=== PATIENT | male | born 1995 | race Caucasian/White ===

== ENCOUNTER 2018-07-28 07:13 | Day surgery (SDC) | payer BC ==
--- NOTE | 2018-07-27 11:15 | Pre-op HX & Phy Repo 2 SIG ---
DATE OF ADMISSION: 07/28/2018 SCHEDULED FOR OUTPATIENT SURGERY: July 28, 2018. HISTORY OF PRESENT ILLNESS: The patient is a 22-year-old male in overall good health with a right groin bulge for the past year, which recently is associated with discomfort and increased bulging. Exam revealed bilateral inguinal hernia and he is scheduled to undergo bilateral herniorrhaphy. He has no gastrointestinal or genitourinary symptoms. PAST MEDICAL HISTORY: None. MEDICATIONS: None. ALLERGIES: None. OPERATIONS: Cardiac ablation at age 11 for supraventricular tachycardia. PHYSICAL EXAMINATION: GENERAL: The patient is 5 foot 8 inches, 155 pounds. He is thin. HEENT: Within normal limits. LUNGS: Clear. HEART: Regular rhythm. BREASTS: Without masses. ABDOMEN: Soft. There are bilateral small reducible inguinal hernia, the right more prominent than the left. Testes and scrotum were normal. There is no inguinal lymphadenopathy. RECTAL: Deferred. EXTREMITIES: Without edema. Pulses 4+ femoral to pedal bilaterally. NEUROLOGIC: Physiologic. IMPRESSION: Bilateral inguinal hernia, right greater than left. PLAN: I have had a full discussion with the patient regarding the nature of his condition, the nature of the surgery, indications, alternatives, options, and risks including bleeding, infection, recurrence, despite use of mesh, neuritis, or neuralgia, testicular or scrotal swelling or other abnormality, etc. All questions have been answered. He understands and agrees to proceed with bilateral open inguinal hernia repair with mesh. David Mullen M.D. DR: KEYSHA/SYBIL JOB#: [id number] CC:
[~2018-07-28] VITALS: Ht 172.7 cm; Wt 70.3 kg
[2018-07-28] VITALS (14 sets, daily range): BP systolic 105–135; BP diastolic 52–81
[2018-07-28] MEDS ORDERED: NKM (07:41)
[2018-07-28 08:03] LABS: HEMATOCRIT 42.9 % (42.0-52.0); HEMOGLOBIN 13.6 G/DL (14.2-18.0); MEAN CORPUSCULAR VOLUME 61 FL (80-99); PLATELET COUNT 210 K/UL (150-450); RED BLOOD COUNT 7.01 M/UL (4.70-6.10); RED CELL DISTRIBUTION WIDTH 13.1 % (11.6-14.8); WHITE BLOOD COUNT 6.5 K/UL (4.8-10.8)
[2018-07-28 08:10] LABS: ANION GAP 8 mmol/L (5-15); BLOOD UREA NITROGEN 12 mg/dL (7-18); CALCIUM 9.3 MG/DL (8.5-10.1); CARBON DIOXIDE 27 MMOL/L (21-32); CHLORIDE 104 MMOL/L (98-107); POTASSIUM 4.9 MMOL/L (3.5-5.1); SODIUM 139 MMOL/L (136-145)
[2018-07-28] MEDS ORDERED: Bupivacaine 0.5% Inj 30 ml vial INJ ONE (09:06)
[2018-07-28] MEDS ORDERED: Bacitracin 50000 Units Vial ONE (09:07)
[2018-07-28] MEDS ORDERED: Lidocaine 1% Plain 30 ml INJ ONE (09:07)
[2018-07-28] MEDS ORDERED: Zemuron 50mg/5ml Inj IV ONE (09:13)
--- NOTE | 2018-07-28 09:13 | Pre-Procedure Note/Attestation ---
Pre-Procedure Note/Attestation Complete Prior to Procedure Planned Procedure: bilateral Procedure Narrative: bilateral inguinal hernia repair with mesh Indications for Procedure Pre-Operative Diagnosis: bilateral inguinal hernia Attestation I attest that I discussed the nature of the procedure; its benefits; risks and complications; and alternatives (and the risks and benefits of such alternatives ), prior to the procedure, with the patient (or the patient's legal packaging sales representative). I attest that, if there was a reasonable possibility of needing a blood transfusion, the patient (or the patient's legal packaging sales representative) was given the [facility] standardized written summary, pursuant to the [place] Blood Safety Act ([place] Health and Safety Code # 1645, as amended). I attest that I re-evaluated the patient just prior to the surgery and that there has been no change in the patient's H&P, except as documented below: none David Mullen MD Jul 28, 2018 09:13
[2018-07-28] MEDS ORDERED: Midazolam 2mg/2ml Inj ONE (09:23)
[2018-07-28] MEDS ORDERED: fentaNYL 100 mcg/2 mL IV ONE (09:23)
[2018-07-28] MEDS ORDERED: Lidocaine 1% MPF 10mg/ml 5ml ONE (09:26)
[2018-07-28] MEDS ORDERED: Propofol 200mg/20ml IV ONE (09:26)
[2018-07-28] MEDS ORDERED: Sodium Chloride 10ml vial INJ ONE (09:26)
[2018-07-28] MEDS ORDERED: LR 1000ml ONE (09:30)
[2018-07-28] MEDS ORDERED: NS Irrig 1000ml ONE (09:30)
[2018-07-28] MEDS ORDERED: Glycopyrrolate 0.2mg/ml 1ml Vial ONE (09:30)
[2018-07-28] MEDS ORDERED: Sterile Water Irrig 1000ml IRRIG ONE (09:30)
[2018-07-28] MEDS ORDERED: Neostigmine 1mg/ml 10ml Inj ONE (09:30)
[2018-07-28] MEDS ORDERED: LR 1000ml 1,000 ML IVLG SCH (10:17)
--- NOTE | 2018-07-28 10:17 | Anethesia Preoperative Eval ---
Anesthesia Pre-op PMH/ROS General Date of Evaluation: Jul 28, 2018 Time of Evaluation: 09:30 Anesthesiologist: Zoltan ASA Score: ASA 2 Mallampati Score Class I : Soft palate, uvula, fauces, pillars visible Class II: Soft palate, uvula, fauces visible Class III: Soft palate, base of uvula visible Class IV: Only hard plate visible Mallampati Classification: Class II Surgeon: Sebas Diagnosis: Bilateral injuinal hernia Surgical Procedure: Repair of bilateral hernia Anesthesia History: none Family History: no anesthesia problems Allergies: Coded Allergies: No Known Allergies (Unverified , 07/28/18) Medications: see eMAR Patient NPO?: Yes Past Medical History Cardiovascular: Reports: arrhythmia - H/o SVT s/p ablation stable Pulmonary: Denies: asthma, COPD, ADRIANA, other Gastrointestinal/Genitourinary: Denies: GERD, CRI, ESRD, other Neurologic/Psychiatric: Denies: dementia, CVA, depression/anxiety, TIA, other Endocrine: Denies: DM, hypothyroidism, steroids, other HEENT: Denies: cataract (L), cataract (R), glaucoma, SQUAXIN (L), SQUAXIN (R), other Hematology/Immune: Denies: anemia, DVT, bleeding disorder, other Musculoskeletal/Integumentary: Denies: OA, RA, DJD, DDD, edema, other PMH Narrative: as above PSxH Narrative: Cardiac ablation, T&A dental Anesthesia Pre-op Phys. Exam Physician Exam Last Vital Signs Date Time Temp Pulse Resp B/P (MAP) Pulse Ox O2 Delivery O2 Flow Rate FiO2 07/28/18 07:48 Room Air 07/28/18 07:38 97.9 63 18 135/81 100 Constitutional: NAD Neurologic: CN 2-12 intact Cardiovascular: RRR, no M/R/G Respiratory: CTA Gastrointestinal: S/NT/ND Airway Exam Mallampati Score: Class II MO: full Neck: flexible ROM: full Teeth: intact Dentures: no upper, no lower Anesthesia Pre-op A/P Labs Hematology Test 07/28/18 07:50 White Blood Count 6.5 K/UL (4.8-10.8) Red Blood Count 7.01 M/UL (4.70-6.10) H Hemoglobin 13.6 G/DL (14.2-18.0) L Hematocrit 42.9 % (42.0-52.0) Mean Corpuscular Volume 61 FL (80-99) L Mean Corpuscular Hemoglobin 19.3 PG (27.0-31.0) L Mean Corpuscular Hemoglobin Concent 31.6 G/DL (32.0-36.0) L Red Cell Distribution Width 13.1 % (11.6-14.8) Platelet Count 210 K/UL (150-450) Mean Platelet Volume 7.8 FL (6.5-10.1) Neutrophils (%) (Auto) % (45.0-75.0) Lymphocytes (%) (Auto) % (20.0-45.0) Monocytes (%) (Auto) % (1.0-10.0) Eosinophils (%) (Auto) % (0.0-3.0) Basophils (%) (Auto) % (0.0-2.0) Differential Total Cells Counted 100 Neutrophils % (Manual) 49 % (45-75) Lymphocytes % (Manual) 39 % (20-45) Monocytes % (Manual) 9 % (1-10) Eosinophils % (Manual) 3 % (0-3) Basophils % (Manual) 0 % (0-2) Band Neutrophils 0 % (0-8) Platelet Estimate Adequate Platelet Morphology Normal Hypochromasia 1+ Microcytosis 2+ Chemistry Test 07/28/18 07:50 Sodium Level 139 MMOL/L (136-145) Potassium Level 4.9 MMOL/L (3.5-5.1) Chloride Level 104 MMOL/L (98-107) Carbon Dioxide Level 27 MMOL/L (21-32) Anion Gap 8 mmol/L (5-15) Blood Urea Nitrogen 12 mg/dL (7-18) Creatinine 1.0 MG/DL (0.55-1.30) Estimat Glomerular Filtration Rate > 60 mL/min (>60) Glucose Level 91 MG/DL (74-106) Calcium Level 9.3 MG/DL (8.5-10.1) Studies Pre-op Studies: EKG - NSR Risk Assessment & Plan Assessment: ASA 2 Plan: GA with ETT PONV prevention Status Change Before Surgery: No Pre-Antibiotics Drug: Ancef 1gr Given Within 1 Hr of Incision: Yes Time Given: 09:56 Yuriy Russ MD Jul 28, 2018 10:17
[2018-07-28] MEDS ORDERED: Ketorolac 30mg Inj IV PRN (10:30)
[2018-07-28] MEDS ORDERED: Meperidine 50mg/ml Inj(FOR RIGORS ONLY) IV PRN (10:30)
[2018-07-28] MEDS ORDERED: Metoclopramide 10mg/2ml Inj IVP PRN (10:30)
[2018-07-28] MEDS ORDERED: DiphenhydrAMINE 50mg/ml Inj IVP PRN (10:30)
--- NOTE | 2018-07-28 11:24 | Brief Operative Note ---
Immediate Post Operative Note Operative Note Pre-op Diagnosis: bilateral inguinal hernia Procedure: repair bilateral inguinal hernia with prolene mesh Post-op Diagnosis: bilateral direct inguinal hernia Post-op Diagnosis: same as pre-op Findings: consistent w/pre-op dx studies Surgeon: marquis Anesthesiologist: emilee Anesthesia: general Specimen: none Complications: none Condition: stable Fluids: see anesthesia record Estimated Blood Loss: minimal Drains: none Implant(s) used?: Yes - prolene mesh David Mullen MD Jul 28, 2018 11:24
[2018-07-28] MEDS ORDERED: HYDROmorphone 1mg/ml Carpuject SUBQ PRN (11:30)
[2018-07-28] MEDS ORDERED: Norco 5mg/325mg tab ORAL PRN (11:30)
[2018-07-28] MEDS ORDERED: Tylenol #3 tab (300mg/30mg) ORAL PRN (11:30)
--- NOTE | 2018-07-28 11:31 | Immediate Post-Op Evaluation ---
Immediate Post-Op Evalulation Immediate Post-Op Evalulation Procedure: Bilateral injuinal hernia repair Date of Evaluation: Jul 28, 2018 Time of Evaluation: 11:30 IV Fluids: 1000 Blood Products: none Estimated Blood Loss: min Urinary Output: none Blood Pressure Systolic: 118 Blood Pressure Diastolic: 64 Pulse Rate: 96 Respiratory Rate: 22 O2 Sat by Pulse Oximetry: 99 Temperature (Fahrenheit): 97.8 Pain Score (1-10): 2 Nausea: No Vomiting: No Complications none Patient Status: reacts, patent, extubated, none Hydration Status: adequate Yuriy Russ MD Jul 28, 2018 11:31
--- NOTE | 2018-07-28 12:53 | 48 Hour Post Anesthesia Eval ---
Post Anesthesia Evaluation Procedure: Bilateral injuinal hernia repair Date of Evaluation: Jul 28, 2018 Time of Evaluation: 12:52 Blood Pressure Systolic: 118 0: 75 Pulse Rate: 78 Respiratory Rate: 20 Temperature (Fahrenheit): 97.6 O2 Sat by Pulse Oximetry: 98 Airway: patent Nausea: No Vomiting: No Pain Intensity: 2 Hydration Status: adequate Cardiopulmonary Status: stable Mental Status/LOC: patient returned to baseline Follow-up Care/Observations: n/a Post-Anesthesia Complications: none Follow-up care needed: ready to discharge Yuriy Russ MD Jul 28, 2018 12:53
--- NOTE | 2018-07-29 00:42 | Operative Note - Dictated ---
DATE OF OPERATION: 07/28/2018 SURGEON: David Mullen M.D. TRIAGE CLINICIAN: None. ANESTHESIOLOGIST: Yuriy Russ M.D. TYPE OF ANESTHESIA: General. PREOPERATIVE DIAGNOSIS: Bilateral inguinal hernia. POSTOPERATIVE DIAGNOSIS: Bilateral direct inguinal hernia. TEST PERFORMED: Repair of bilateral inguinal hernia with Prolene mesh. DESCRIPTION OF PROCEDURE: The patient was taken to the operating room and under general anesthesia with sequential compression device stockings in place and having received intravenous antibiotics, he was prepped and draped in the usual fashion. Attention was first directed to the larger symptomatic right side. A transverse curvilinear right groin incision was made achieving hemostasis with cautery. The external oblique aponeurosis was opened through the external ring preserving the ilioinguinal nerve. The spermatic cord was mobilized at the pubic tubercle and elevated to the internal ring. There was failure of the lateral half of the floor of the inguinal canal. Dissecting anteromedially in the cord adjacent to the vas revealed no indirect inguinal hernia sac, only a small processus. The repair was accomplished by taking a piece of Prolene mesh measuring approximately 4 x 9 centimeters cut and tapered appropriately, soaked in antibiotic solution. First, the inferior edge was sutured to the shelving edge of inguinal ligament, starting at pubic tubercle and extending lateral to the internal ring with continuous 2-0 Prolene. Then the lateral aspect of the mesh was split longitudinally, so the tails could encircle the cord. Following this, the medial-superior edge of the mesh was sutured to the transversus tendon again starting at pubic tubercle and extending lateral to the internal ring with continuous 2-0 Prolene. One suture was taken just lateral to the internal ring to tack the superior tail over the inferior tail to the inguinal ligament. The newly created internal ring and the mesh did not constrict the cord. The repair appeared very satisfactory without tension. The field was irrigated with antibiotic solution and hemostasis was secured. The external oblique aponeurosis was closed over the spermatic cord with continuous 2-0 Vicryl. Local infiltration with a combination of 1% Xylocaine plain and 0.5% Marcaine plain was then utilized. Coty's fascia was closed with interrupted 3-0 Vicryl as well as subcutaneous tissues and the skin closed with continuous 4-0 Monocryl subcuticular suture. Attention was then directed to the left side where the same procedure was carried out with the same findings and same repair. At the end of the procedure, half-inch Steri-Strips were applied with tincture of benzoin followed by dry sterile dressings. Final sponge and needle count was correct. At the end of the procedure, both testes were retracted well down into the scrotum. The patient tolerated the procedure well and left the operating room in good condition. David Mullen M.D. DR: Jigna JOB#: [id number] CC:
== END 2018-07-28 15:00 | disposition home or self-care (01) ==
LOC: SUR 07:13
DX: K40.20 Bilateral inguinal hernia, without obstruction or gangrene, not specified as recurrent (principal)
CPT/HCPCS: 36415; 49505; 80048; 85007; 85025; 93005; C1781; J0690; J1885; J2001; J2175; J2250; J2405; J2704; J2710; J3010; J3490; 94003; 94150